=== PATIENT | male | born 1980 | race Caucasian/White ===

== ENCOUNTER 2024-07-13 09:32 | Emergency (ER) | payer OTHER, SELFPAY ==
[2024-07-13 09:48] VITALS: BP 130/76; PULSE 63; RESP 19; TEMP 36.4; O2SAT 98; BMI 27.1
[2024-07-13 09:52] VITALS: PULSE 63
--- NOTE | 2024-07-13 09:57 | ED_ITS ---
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 He had some pain the 1st day and now is continuing to note that while he can flex his right upper extremity his bicipit al strength is significantly diminished and there is no bulging of the biceps with flexion. No other complaints today. Related Data Home Medications Medication Instructions Recorded Confirmed No Known Home Medications 01/04/19 01/04/19 Allergies Allergy/AdvReac Type Severity Reaction Status Date / Time No Known Drug Allergies Allergy Verified 07/13/24 09:48 Review of Systems Review of Systems Narrative: Pertinent positive and negative findings as per HPI Patient History Social History Smoking Status: Never smoker Smoking Status: Never smoker Exam Initial Vital Signs Initial Vital Signs: Vital Signs Temperature 97.6 F 07/13/24 09:48 Pulse Rate 63 07/13/24 09:48 Respiratory Rate 19 07/13/24 09:48 Blood Pressure 130/76 07/13/24 09:48 Pulse Oximetry 98 07/13/24 09:48 Oxygen Delivery Method Room Air 07/13/24 09:48 General: Alert appropriate in no acute distress Respiratory: Able to speak in full sentences, no obvious respiratory distress Skin: No obvious rashes, warm and dry Neurologic: Grossly intact no obvious asymmetries or abnormalities Psych: appropriate insight and affect, cooperative extremity: Right upper extremity is examined. He does not have any bony tenderness, there was no swelling or bruising. He is able to completely extend his elbow. He does have weakness with bicipital flexion and minimal evidence of bicipital contraction compared to the left side. There is some tenderness with passive pronation of the forearm but no obvious extensor tendon pain in the forearm. Shoulder exam is benign. Course Vital Signs Vital signs: Vital Signs - 8 hr 07/13/24 09:48 Temperature 97.6 F Pulse Rate 63 Respiratory Rate 19 Blood Pressure 130/76 Pulse Oximetry 98 Oxygen Delivery Method Room Air Medical Decision Making [facility] Narrative Medical decision making narrative: 43-year-old gentleman presents with right upper extremity weakness after hearing a loud pop after an episode of increased strain requiring acute flexion of the biceps. Pain has resolved, he is having no swelling. Distally neurovascularly intact. Bicipital strength is diminished. there was no indication for emergent imaging or additional workup today. Discussed diagnosis, concerns and need for outpatient follow up. He is referred to our Orthopedic [facility], he eventually may need MRI for definitive diagnosis and further recommendations regarding any type of surgical intervention. Questions are answered and he is currently safe for discharge home Discharge Plan Departure Patient Disposition: Home Clinical Impression: Biceps tendon rupture, traumatic Qualifiers: Encounter type: initial encounter Laterality: right Qualified Code(s): S46.211A - Strain of muscle, fascia and tendon of other parts of biceps, right arm, initial encounter Activity Restrictions/Additional Instructions: thank you for coming in today I think you are diagnosis is absolutely correct, you at least part of your biceps tendon. I have printed out information for biceps tendinopathy and tendon rupture from a website called up-to-date, 1 frequently use by physicians. Hopefully this gives you some additional information. I am glad you are having minimal pain, the fact that you are having bicipital tenderness, the history and your exam consistent with a tendon tear ( which is functionally the same thing as the tendon slightly pulling off the bone). initial treatment is exactly what you have done, ibuprofen, Tylenol resting, ice. There was no further emergent treatment that you need. I would recommend that you contact our orthopedic surgery office, [facility], phone number is [phone]. explain that you are in the emergency department, have a bicipital tendon rupture and need follow up. If they do need a primary care referral, you will need to contact [facility] to establish a primary care physician to get said referral. Using 400 mg of ibuprofen (2 [id number] pills) and 1 Tylenol every 6 hours can be very helpful in controlling pain. It is okay to use the arm at this point, do late strength/ weakness and pain limit your activity. If that is obviously straining or hurting you need to stop. If you find that you are getting worse or develop any new symptoms, please feel free to return to the emergency department for further evaluation. Prescriptions: No Action No Known Home Medications Stand Alone Forms: Patient Portal/API/Survey
--- NOTE | 2024-07-13 10:14 | PC.NURSE ---
Patient presents to Ed with possible tendon rupture. Reports feeling a pop on Monday 07/10 when carrying plywood at work that his partner dropped. Pulse normal, cap refill normal. Has been treating with ice.
== END 2024-07-13 10:17 | disposition home or self-care (01) ==
PROVIDERS: Emergency Provider Emergency Medicine
DX: S46.211A Strain of muscle, fascia and tendon of other parts of biceps, right arm, initial encounter (principal); X50.0XXA Overexertion from strenuous movement or load, initial encounter
CPT/HCPCS: 99281